=== PATIENT | female | born 2000 | race Two or more races ===

== ENCOUNTER → 2024-07-10 | Outpatient (CLI) | payer MEDICAID, SELFPAY ==
--- NOTE | 2024-07-10 13:00 | XR_ITS ---
Examination: Breast ultrasound, unilateral, right complete Date and time of exam: July 10, 2024 1309 hours INDICATIONS: MRI breast 05/07/2024 12 mm nodule outer right breast Technique: Real-time lane scale ultrasonographic imaging performed right breast including all 4 quadrants as well as nipple retroareolar and axillary region. Findings: 10:00 oval mass indistinct margins 10 x 6 x 11 mm IMPRESSION: BI-RADS Category 4: Suspicious for malignancy Suspicious nodule 10:00 position right breast, biopsy is needed to exclude breast carcinoma, this nodule is amenable to ultrasound-guided breast biopsy for diagnosis
--- NOTE | 2024-07-10 13:30 | XR_ITS ---
Examination: Diagnostic digital mammography, unilateral, right Computer aided detection 3-D breast Tomosynthesis, unilateral Date and time of exam: July 10, 2024 1327 hours INDICATIONS: Positive for BRCA genes, family history, mother breast cancer , Breast MRI 05/07/2024 12 mm nodule outer right breast Technique: Nonmagnified MLO, CC views of the right breast have been obtained, reconstructed from 3-D Tomosynthesis images. R2 computer aided detection program utilized for evaluation of suspicious masses and/or abnormal calcifications. 3-D Tomosynthesis images obtained. Findings: The breast is extremely dense, which limits the sensitivity of mammography 10:00 mass is confirmed on the follow-up views, corresponding to 10:00 nodule with indistinct margins on the right breast sonogram today, measuring 10 mm Impression: BI-RADS category 4: Suspicious for malignancy Suspicious nodule 10:00 position right breast is confirmed, corresponding to suspicious that o'clock nodule described on right breast sonogram today Biopsy of this nodule is needed to exclude breast carcinoma, this nodule is amenable to ultrasound-guided breast biopsy
== END | disposition home or self-care (01) ==
PROVIDERS: PCP Nurse Practitioner Family; Referring Provider Nurse Practitioner Family; Visit Provider Nurse Practitioner Family
DX: R92.341 Mammographic extreme density, right breast (principal); N63.11 Unspecified lump in the right breast, upper outer quadrant; Z80.3 Family history of malignant neoplasm of breast
CPT/HCPCS: 76641; 77061; 77065; G0279

== ENCOUNTER 2024-07-23 13:17 | Outpatient (RCR) | payer MEDICAID, SELFPAY | END 2024-08-19 23:59 | disposition home or self-care (01) | LOC: SCTC 13:17 | PROVIDERS: PCP Family Medicine; Referring Provider Family Medicine; Visit Provider Nurse Practitioner Family | DX: O26.891 Other specified pregnancy related conditions, first trimester (principal); N63.12 Unspecified lump in the right breast, upper inner quadrant; Z15.01 Genetic susceptibility to malignant neoplasm of breast; Z80.3 Family history of malignant neoplasm of breast; Z3A.12 12 weeks gestation of pregnancy | CPT/HCPCS: 99212; G0463 ==

== ENCOUNTER → 2024-09-16 | Outpatient (CLI) | payer MEDICAID, SELFPAY ==
[2024-09-15 10:08] LABS: Basophils % (Auto) 0 % (0-2.5); Eosinophils # (Auto) 0.1 Thou/mm3 (0.0-0.5); Eosinophils % (Auto) 2 % (0-10); Hematocrit 31.4 % (36.0-46.0); Hemoglobin 10.9 g/dL (12.0-16.0); Immature Granulocytes % (Auto) 1 % (0-0); Immature Granulocytes Auto 0.05 Thou/mm3 (0.00-0.00); Lymphocytes # (Auto) 1.3 Thou/mm3 (1.0-4.8); Lymphocytes % (Auto) 18 % (10-50); Mean Corpuscular HGB Conc 34.7 g/dl (31.0-37.0); Mean Corpuscular Hemoglobin 30.3 pg (25.0-35.0); Mean Corpuscular Volume 87 fL (80-100); Monocytes # (Auto) 0.4 Thou/mm3 (0.0-0.8); Monocytes % (Auto) 5 % (0-12); Neutrophils # (Auto) 5.5 Thou/mm3 (1.8-7.7); Neutrophils % (Auto) 74 % (37-80); Nucleated Red Blood Cell % 0 /100 WBC (0); Platelet Count 206 Thou/mm3 (140-440); RDW Standard Deviation 41.5 fL (36.4-46.3); White Blood Count 7.4 Thou/mm3 (3.6-11.0)
[2024-09-15 10:11] LABS: HCG,Qualitative Serum Positive
[2024-09-15 10:27] LABS: INR 0.9 (0.9-1.3); Partial Thromboplastin Time 24.2 Seconds (22.0-36.0)
--- NOTE | 2024-09-16 10:30 | XR_ITS ---
Examinations: Ultrasound-guided percutaneous breast biopsy, right breast 10:00 nodule Right breast sonography limited. Exam date and time: September 16, 2024 1040 hours INDICATIONS: Right breast sonogram July 10, 2024 BI-RADS 4 suspicious mass 10:00 position right breast. Informed consent provided. Technique: A timeout was completed verifying correct patient, procedure, site, positioning, and special equipment if applicable Informed consent provided. The patient was placed in a supine position for the breast biopsy. Sonographic images of the breast were performed for localization of the suspicious nodule The patient's breast was prepped and draped in sterile fashion. Maximum sterile barrier technique, hand hygiene, ultrasound sterile technique 1% lidocaine was used to anesthetize the skin and breast adjacent to the suspicious nodule. Utilizing ultrasonographic guidance, 8 core biopsies were obtained of the suspicious nodule utilizing an 18-gauge BioPince needle. The specimens appears satisfactory. US guided breast biopsy marker placement. Estimated blood loss 3 cc. The patient tolerated the procedure well and there were no complications. Impression: Successful ultrasound-guided percutaneous breast biopsy, right breast 10:00 nodule. Ultrasound guided breast biopsy marker placement.
== END | disposition home or self-care (01) ==
PROVIDERS: Radiology Diagnostic Radiology; PCP Physician Assistant Medical; Referring Provider Nurse Practitioner Family; Visit Provider Nurse Practitioner Family
DX: D24.1 Benign neoplasm of right breast (principal); Z80.3 Family history of malignant neoplasm of breast; Z01.812 Encounter for preprocedural laboratory examination
CPT/HCPCS: 19083; 36415; 84703; 85025; 85610; 85730; A4648

== ENCOUNTER 2024-10-02 13:54 | Outpatient (RCR) | payer MEDICAID, SELFPAY ==
--- NOTE | 2024-10-19 15:59 | CTCFLWUP_ITS ---
Patient: HORACIO LOU : 2000 Page 4 of 5 FOLLOW UP NOTE DATE OF SERVICE: 10/02/2024 NAME: HORACIO LOU ACCOUNT: [id number] : 2000 AGE: 23 INTERVAL HISTORY: Patient requesting referrel to surgeon for prophylactic mastectomy She is worried all the time and it affects her life style. ONCOLOGY HISTORY: No cancer diagnosis BRCA HISTORY OF PRESENT ILLNESS: Patient is pending right breast biopsy. Unfortunately, patient did not complete labs prior to today?s appointment. Patient has a history of anemia during , denies bleeding concerns. Patient is 12 weeks , following up with Dr. Raya, OBGYN. Only complaint today is feeling tired. Patient denies cough chest pain abdominal pain leg cramps weight loss. HISTORY: Ms. Horacio Lou is a 23 year old Gabonese speaking female. Patients was referred to [facility] due to positive BRCA 1 genetic test, patient mother was diagnosed with breast cancer when she was 23 years old. Patient has a child. 06/13/2024: Breast Cancer Genetic testing 10/18/2023: Pelvic ultrasound Conclusion: The measurements of the uterus and ovaries are unremarkable. No fluid in the cul-de-sac. Thickening of the endometrial stripe which measures 1.5 cm 10/18/2023: bilateral breast ultrasound Findings: Sonographic images right breast No cystic or solid mass Sonographic images left breast 1:00 oval mass 7 x 6 x 7 mm indistinct margins IMPRESSION: BI-RADS Category 4: Suspicious for malignancy Suspicious mass 1:00 position left breast Biopsy is needed to say breast carcinoma This mass is amenable to ultrasound-guided breast biopsy for diagnosis Also recommend diagnostic mammography follow-up 03/20/2024: CA125 is 16.5, CEA is 0.6 03/25/2024: Left breast biopsy 04/07/2024: Ultrasound pelvic transabdominal 04/07/2024: Transvaginal ultrasound of the pelvis 05/01/2024 : left breast diagnostic mammogram - showed probably benign findings, recommended 6-month follow-up left mammogram to document stability 1:00 biopsy nodule left breast 05/05/2024: chest x-ray showed no active disease 05/06/2024 : surveillance CT of abdomen and pelvis with contrast- showed no abdominal or pelvic mass, recommended MRI of breast due to history 05/07/2024: bilateral breast MRI- recommended for additional imaging, right breast diagnostic mammogram and right breast ultrasound for 12 mm nodule circumcise outer right breast OTHER MEDICAL HISTORY/CONDITIONS: BRCA positive Migraine headaches since age 11 Kidney stones during - 2020 Ureteral Stent placed while then removed FAMILY HISTORY: Mother breast cancer, at the age of 23 y/o, mother BRCA positive. SOCIAL HISTORY: Occupational?History:?Student Education?Level:?Attended College, did not graduate Marital?Status:?Life?Partner Tobacco?Use:?Denies ETOH?Use:?Denies Drug?Note:?Denies Social History Note:?Lives with partner and child HISTOLOGICAL ILLUSTRATOR HISTORY: Menarche?-?Age:?12 Date?LMP:?08/31/2023 :?1 Live?Births:?1 Age?1st?:?20 MEDICATIONS: 1. - 1 mg tab Daily Medications Last Reconciled by Mirna Stratton MA on 10/02/2024 ALLERGIES: No Known Drug Allergies REVIEW OF SYSTEMS: A complete 14-point review of systems was performed and is negative except as noted in interval history. PHYSICAL EXAMINATION: VITAL SIGNS: Temperature?98.2, B/P?121/82, Oxygen?Saturation?97% Weight?208?lbs PAIN: 0 - No pain ECOG Performance Status: 0 - Asymptomatic and fully active GENERAL APPEARANCE: Appears well, in no apparent distress, appropriately interactive. HEENT: Normocephalic, no temporal wasting, normal conjunctiva, no scleral icterus, normal hearing, lips without lesions, neck normal range of motion. CARDIOVASCULAR: Not assessed. PULMONARY: Normal respiratory effort, no respiratory distress or use of accessory muscles, speaking in full sentences, no tachypnea. EXTREMITIES: No pedal edema or cyanosis. SKIN: Normal skin appearance. NEUROLOGIC: Alert and oriented x4. PSHYCHIATRIC: Appropriate affect, mood normal, behavior normal, intact thought and speech. LABORATORY DATA: I have personally reviewed and interpreted each of the patient?s relevant lab tests, abnormal findings are below: Date 09/15/24 ??WHITE?BLOOD?COUNT?(Thou/mm3) 7.4 ??RED?BLOOD?COUNT?(Miln/mm3) 3.60?L ??HEMOGLOBIN?(gm/dl) 10.9?L ??HEMATOCRIT?(%) 31.4?L ??PLATELET?COUNT?(Thou/mm3) 206 ??NEUTROPHILS?%,?AUTO?(%) 74 ??LYMPH?%,?AUTO?(%) 18 ??NEUTROPHILS,?AUTO?(Thou/mm3) 5.5 ASSESSMENT/PLAN: BRCA1 MULTIPLE BIOPSIES AND imaging ? all benign Patiet is worried and want to do prophylactic mastectomy ORDERS: Mammogram ,referrel to dr goodwin for mastectomy RETURN TO CLINIC: prn BILLING AND COMPLIANCE: I reviewed external records from providers outside my specialty as summarized above. I spent a total of 50 minutes on this patient?s care on the day of their visit excluding time spent related to any billed procedures. This time includes time spent with the patient as well as time spent documenting in the medical record, reviewing patients records and tests, obtaining history, placing orders, communicating with other healthcare professionals, counseling the patient, family or caregiver, and/or care coordination for the diagnoses above. Electronically Signed by: Chepe Javier MD T: 3:56 PM CC: PCP: Sherry Krueger Referring: Sherry Krueger This document was completed utilizing speech recognition software. Grammatical errors, random word insertions, pronoun errors, and incomplete sentences are an occasional consequence of this system due to software limitations, ambient noise, and hardware issues. Any formal questions or concerns about the content, text or information contained within the body of this dictation should be directly addressed to the provider for clarification.
== END 2024-10-17 23:59 | disposition home or self-care (01) ==
LOC: SCTC 13:54
PROVIDERS: PCP Family Medicine; Referring Provider Nurse Practitioner Family; Visit Provider Internal Medicine Hematology & Oncology
DX: Z76.89 Persons encountering health services in other specified circumstances (principal); Z80.3 Family history of malignant neoplasm of breast; Z15.01 Genetic susceptibility to malignant neoplasm of breast
CPT/HCPCS: 99212; G0463

== ENCOUNTER → 2024-10-30 | Outpatient (CLI) | payer MEDICAID, SELFPAY ==
--- NOTE | 2024-10-30 08:00 | XR_ITS ---
Examination: Diagnostic digital mammography, unilateral, left Computer aided detection 3-D breast Tomosynthesis, unilateral Date and time of exam: 10/30/2024, 8:43 AM Comparisons: May 01, 2024 Indications: Positive BRCA Technique: Nonmagnified MLO, CC views of the left breast have been obtained, reconstructed from 3-D Tomosynthesis images. R2 computer aided detection program utilized for evaluation of suspicious masses and/or abnormal calcifications. 3-D Tomosynthesis images obtained. Technologist: Findings: The breasts are extremely dense, which lowers the sensitivity of mammography. No evidence of abnormal masses or suspicious calcifications. Stable 8 mm left upper outer quadrant mass with postbiopsy marker clip. Otherwise, no suspicious masses or calcifications. Impression: BI-RADS category 2: Benign findings Recommend yearly screening MRI exam
== END | disposition home or self-care (01) ==
PROVIDERS: Referring Provider Nurse Practitioner Family; Visit Provider Nurse Practitioner Family
DX: R92.322 Mammographic fibroglandular density, left breast (principal); Z80.3 Family history of malignant neoplasm of breast
CPT/HCPCS: 77061; 77065; G0279

== ENCOUNTER 2025-01-23 22:41 | Observation (INO) | payer MEDICAID, SELFPAY ==
[2025-01-23] VITALS (18 sets, daily range): BP systolic 125–135; BP diastolic 63–75; PULSE 83–110; RESP 18–97; TEMP 36.9; O2SAT 92–98; BMI 35.8
[2025-01-23 23:24] LABS: ROM Kit Lot # 578010271; ROM Swab Mixed By: SEDAD; Rupture of Fetal Membranes Negative (Negative); Swb Mxed in Solvent 1 min? Yes
== END 2025-01-24 00:07 | disposition home or self-care (01) ==
PROVIDERS: Admitting Provider Specialist; Visit Provider Specialist
DX: O47.1 False labor at or after 37 completed weeks of gestation (principal); Z3A.38 38 weeks gestation of pregnancy
CPT/HCPCS: 59025; 59899; 84112

== ENCOUNTER 2025-01-28 10:31 | Inpatient (IN) | payer MEDICAID, SELFPAY ==
[2025-01-28] VITALS (61 sets, daily range): BP systolic 120–152; BP diastolic 57–91; PULSE 74–110; RESP 18–97; TEMP 36.7–37.4; O2SAT 92–100; BMI 38.5; BMI 36.1
--- NOTE | 2025-01-28 10:41 | XR_ITS ---
Examination: Complete OB ultrasound greater than 14 weeks Date and time of exam: January 28, 2025 1115 hours INDICATIONS: -induced hypertension today Findings: Viable intrauterine single fetus with single amniotic sac presentation cephalic spine maternal right Cardiac motion 141 BPM Placenta anterior grade 3 Umbilical cord insertion 3 vessel seen Amniotic fluid index 11.2 cm Cervix 3.9 cm Ovaries obscured by bowel gas. Composite estimated gestational age based on BPD, head circumference, abdominal circumference, femur length is 39 weeks 1 day Estimated weight 3701 g. Survey of intracranial anatomy, spinal anatomy, abdominal anatomy, four-chamber heart performed with no abnormalities identified. Impression: Viable intrauterine gestation cephalic presentation.
[2025-01-28 11:07] LABS: Collection Type, Urine Clean Catch
[2025-01-28 11:15] LABS: Basophils % (Auto) 0 % (0-2.5); Eosinophils % (Auto) 1 % (0-10); Hematocrit 28.7 % (36.0-46.0); Hemoglobin 9.8 g/dL (12.0-16.0); Immature Granulocytes % (Auto) 1 % (0-0); Immature Granulocytes Auto 0.03 Thou/mm3 (0.00-0.00); Lymphocytes # (Auto) 1.1 Thou/mm3 (1.0-4.8); Lymphocytes % (Auto) 19 % (10-50); Mean Corpuscular HGB Conc 34.1 g/dl (31.0-37.0); Mean Corpuscular Hemoglobin 26.6 pg (25.0-35.0); Mean Corpuscular Volume 78 fL (80-100); Monocytes # (Auto) 0.3 Thou/mm3 (0.0-0.8); Monocytes % (Auto) 4 % (0-12); Neutrophils # (Auto) 4.6 Thou/mm3 (1.8-7.7); Neutrophils % (Auto) 76 % (37-80); Nucleated Red Blood Cell % 0 /100 WBC (0); Platelet Count 202 Thou/mm3 (140-440); RDW Standard Deviation 45.8 fL (36.4-46.3); Red Blood Count 3.68 Miln/mm3 (4.00-5.20); White Blood Count 6.1 Thou/mm3 (3.6-11.0)
[2025-01-28 11:37] LABS: Alanine Aminotransferase 12 U/L (10-49); Albumin, Serum 3.6 gm/dL (3.5-5.0); Albumin/Globulin Ratio 1.8 (1.2-2.2); Alkaline Phosphatase 122 U/L (46-116); Anion Gap 12 (7-16); Aspartate Amino Transferase 15 U/L (0-34); BUN/Creatinine Ratio 13 Ratio (12-20); Bilirubin,Total 0.3 mg/dL (0.3-1.2); Blood Urea Nitrogen 8 mg/dL (9-23); Calcium 8.5 mg/dL (8.3-10.6); Calcium (Corrected) 8.8 mg/dL (8.5-10.1); Carbon Dioxide 21.5 mMol/L (20.0-31.0); Chloride 108 mMol/L (98-107); Creatinine (Component) 0.6 mg/dL (0.6-1.3); Estimated Creatinine Clearance 166.3 mL/min (>60); Glucose 115 mg/dL (74-106); Osmolality,Calculated 280 (275-295); Potassium 3.7 mMol/L (3.4-5.1); Sodium 141 mMol/L (136-145); Total Protein 5.6 gm/dL (5.7-8.2); Uric Acid 5.5 mg/dL (3.1-7.8); eGFR > 60 See Note
[2025-01-28 11:41] LABS: Bacteria,Urine Rare; Bilirubin,Urine Negative (Negative); Blood,Urine 3+ (Negative); Color,Urine Yellow (Lt Yel-Yel); Glucose, Urine Negative (Negative); Ketones,Urine Negative (Negative); Leukocyte Esterase,Urine Negative (Negative); Nitrite,Urine Negative (Negative); PH,Urine 6.5 (5.0-7.0); Protein,Urine 2+ (Neg - Trace); RBC,Urine 497 /hpf (0-3); Specific Gravity,Urine 1.022 (1.001-1.035); Squamous Epithelial Cell,Urine 2 /hpf (0-5); Urobilinogen,Urine Negative mg/dL (0.0-1.0); WBC,Urine 13 /hpf (0-5)
[2025-01-28 11:44] LABS: Clarity,Urine Hazy (Clear/Hazy)
[2025-01-28 11:51] LABS: Fibrinogen 371 mg/dL (175-375); INR 0.9 (0.9-1.3); Partial Thromboplastin Time 23.8 Seconds (22.0-36.0); Prothrombin Time 9.8 Seconds (9.0-12.2)
[2025-01-28 11:58] LABS: Creatinine,Random Urine 107 mg/dL (30-125)
[2025-01-28 12:05] LABS: Protein Total, Random Urine 309 mg/dL (1-14)
[2025-01-28] MEDS: MISOPROSTOL 50 mCg TABLET PO ×2 (14:28→21:16)
--- NOTE | 2025-01-28 17:15 | PD.LDHP ---
Documentation for date of: 01/28/25 OB Labor/Induct. HPI History of Present Illness Chief complaint: Elevated blood pressures in the office, sent over for evaluation : 3 Para: 1 Term pregnancies: 1 pregnancies: 0 Living children: 1 History of Abortions: Spontaneous and Elective: 1 History of Vaginal deliveries: 1 History of sections: No History of : No Date of last menstrual period: 04/27/24 JULES: 02/01/25 Gestational Age (weeks): 39 Gestational Age (days): 3 Gestational age based on last menstrual period: 39 Indication for induction: medical complication (Elevated protein creatinine ratio) History of present illness: Patient is a 24-year-old -0-1-1 at 39-3/[address] Raya's office for routine OB appointment and had elevated blood pressures. He sent her over to triage where her blood pressures normalized her labs were normal except her protein creatinine ratio corresponded to 3.9 g in 24-hour urine. She was admitted for an induction of labor. Her cervical exam was 2 to 3 cm dilated on presentation. Group B strep negative. She was given 50 mcg of oral Cytotec. An ultrasound on admission revealed a vertex presentation 8 pounds 4 ounces. Her first baby was 8 pounds 11 ounces. She did not push long she states around 15 minutes and did not have an epidural during that labor. She did have a long induction of labor at that time because they were inducing her 39 weeks for kidney pain with stents. History of Present Dating criteria: LMP confirmed by 1st trimester US Adequate Care: Yes Ultrasounds: normal mid trimester US Obstetrical complications: none Medical complications: other (Patient is BRCA1 positive and undergoing evaluation for prophylactic mastectomy. History of kidney stones) Labs Maternal Blood Type: B Pos Labs: Negative: RPR, Hepatitis B, Rubella Titre, HIV, Chlamydia, Gonorrhea and Group Beta Strep and Unknown: Herpes Type 1 and Herpes Type 2 Past Medical History Surgical History SURGICAL: Negative Section Meds Home Medications and Allergies Home Medications ?Medication ?Instructions ?Recorded ?Confirmed ?Type ferrous sulfate 325 mg (65 mg 325 mg PO QDAY 01/23/25 01/28/25 History iron) tablet vits no.130-ferrous fum 1 tab PO QDAY 01/23/25 01/28/25 History 27 mg iron-folic acid 800 mcg tablet ( Vitamin) Allergies Allergy/AdvReac Type Severity Reaction Status Date / Time No Known Allergies Allergy Verified 01/28/25 13:14 OB Exam Physical Exam Vital signs: Temp Pulse Resp BP Pulse Ox 98.1 F 97 18 142/82 H 99 01/28/25 15:00 01/28/25 16:49 01/28/25 15:00 01/28/25 16:49 01/28/25 15:00 Detailed Labor and Delivery Exam Dilation (cm): 2-3 Effacement (%): 60 Cervix position: posterior station: -3 Consistency: medium Presentation: Vertex Membranes: intact monitor accelerations: 15x15 monitor decelerations: None oil heaterman variability: Moderate (-) Contraction frequency (min): Every 4 minutes Tachysystole: No Contraction intensity: Moderate OB Results Labs 01/28/25 10:50 01/28/25 10:50 Labs: Short CBC 01/28/25 Range/Units 10:50 WBC 6.1 (3.6-11.0) Thou/mm3 Hgb 9.8 L (12.0-16.0) g/dL Hct 28.7 L (36.0-46.0) % Plt Count 202 (140-440) Thou/mm3 BMP 01/28/25 10:50 Sodium 141 Potassium 3.7 Chloride 108 H Carbon Dioxide 21.5 BUN 8 L Creatinine 0.6 Glucose 115 H Calcium 8.5 Liver Function 01/28/25 Range/Units 10:50 Total Bilirubin 0.3 (0.3-1.2) mg/dL AST 15 (0-34) U/L ALT 12 (10-49) U/L Alkaline Phosphatase 122 H (46-116) U/L Albumin 3.6 (3.5-5.0) gm/dL Urine 01/28/25 Range/Units 10:44 Urine Color Yellow (Lt Yel-Yel) Urine Clarity Hazy (Clear/Hazy) Urine pH 6.5 (5.0-7.0) Ur Specific Carmine 1.022 (1.001-1.035) Urine Protein 2+ A (Neg - Trace) Urine Glucose (UA) Negative (Negative) OB Assessment & Plan Assessment and Plan (1) Supervision of high risk in third trimester: Status: Acute Assessment and plan: Admit and induced patient for elevated protein. History of hemorrhage. (2) Preeclampsia: Status: Acute Assessment and plan: Blood pressures not severe range. Patient has 3 g of protein loss in a 24-hour urine on a protein creatinine ratio. Induce for severe proteinuria. (2) Preeclampsia Qualifiers: Trimester: third trimester Qualified Code(s): O14.93 - Unspecified pre-eclampsia, third trimester
[2025-01-28 18:38] LABS: Syphilis Nonreactive (Nonreactive)
[2025-01-28] MEDS: fentaNYL CIT INJ 50 mCg/ML AMP 2ML 100 MCG IVP (23:41)
[2025-01-29] VITALS (67 sets, daily range): BP systolic 109–184; BP diastolic 59–89; PULSE 73–166; RESP 16–18; TEMP 36.6–37.1; O2SAT 85–100
[2025-01-29] MEDS: fentaNYL CIT INJ 50 mCg/ML AMP 2ML 100 MCG IVP (00:51)
[2025-01-29] MEDS: TRANEXAMIC ACID 1,000 MG IVPB 1,000 MG/100 ML BAG 200 MG IV (02:12)
[2025-01-29] MEDS: METHYLERGONOVINE INJ 0.2 MG/ML VIAL IM (02:14)
[2025-01-29] MEDS: MISOPROSTOL 200 mCg TABLET 800 MCG PR (02:20)
[2025-01-29] MEDS: OXYTOCIN in NS 20 units 20 UNIT/1,000 ML BAG 125 UNIT IV ×2 (02:41→04:11)
[2025-01-29] MEDS: MINERAL OIL 30 ML UDC TOP (02:48)
[2025-01-29] MEDS: IBUPROFEN TAB 400 MG TABLET 800 MG PO ×2 (02:48→12:06)
[2025-01-29 03:18] LABS: Basophils % (Auto) 0 % (0-2.5); Eosinophils % (Auto) 0 % (0-10); Hematocrit 29.9 % (36.0-46.0); Hemoglobin 9.7 g/dL (12.0-16.0); Immature Granulocytes % (Auto) 1 % (0-0); Immature Granulocytes Auto 0.05 Thou/mm3 (0.00-0.00); Lymphocytes # (Auto) 1.1 Thou/mm3 (1.0-4.8); Lymphocytes % (Auto) 12 % (10-50); Mean Corpuscular HGB Conc 32.4 g/dl (31.0-37.0); Mean Corpuscular Hemoglobin 26.5 pg (25.0-35.0); Mean Corpuscular Volume 82 fL (80-100); Monocytes # (Auto) 0.4 Thou/mm3 (0.0-0.8); Monocytes % (Auto) 4 % (0-12); Neutrophils # (Auto) 8.2 Thou/mm3 (1.8-7.7); Neutrophils % (Auto) 84 % (37-80); Nucleated Red Blood Cell % 0 /100 WBC (0); Platelet Count 197 Thou/mm3 (140-440); RDW Standard Deviation 48.5 fL (36.4-46.3); Red Blood Count 3.66 Miln/mm3 (4.00-5.20); White Blood Count 9.8 Thou/mm3 (3.6-11.0)
[2025-01-29] MEDS: BENZO/LANO/ALOE (Dermoplast) 60 GM CAN 1 SPRAY TOP (04:11)
--- NOTE | 2025-01-29 04:34 | OBDSUM_ITS ---
Data ([facility]) Data Hx Section: No Maternal Blood Type: B Pos Rubella Titre: Negative RPR: Non-reactive Labs: Negative: RPR, Hepatitis B, HIV, Chlamydia, Gonorrhea and Group Beta Strep : 3 Term: 1 : 0 Livin Abortions: Spontaneous & Theraputic: 1 Delivery Data ([facility]) Labor Data Initiation of labor: Induction Induction/Augmentation Agent: Cytotec-PO ROM date: 01/29/25 ROM time: 00:14 Amniotic membrane rupture type: Spontaneous Amniotic fluid description: Clear Delivery Data EDC: 02/01/25 EDC calculated by:: LMP/early US confirmation Date of arrival to unit: 01/28/25 Onset of labor date: 01/28/25 Onset of labor time: 20:00 Complete dilation date: 01/29/25 Complete dilation time: 01:49 [place] delivery date: 01/29/25 [place] delivery time: 02:02 Gestational age (weeks): 39 Gestational age (days): 4 Placenta delivery date: 01/29/25 Placenta delivery time: 02:11 Stage 1 total time: Labor - Stage 1 Duration 5 hours and 49 minutes Delivered by: Fozia Eddy ([facility]) Delivery nurse: majo Padilla nurse: Reba Nunez RN Leveling Machine Operator at delivery: No Support person(s) at delivery: FOB, mother at bedside Delivery Method Delivery method: Normal Vaginal Delivery Presentation: Vertex position: OA Anesthesia Type Anesthesia Type: Epidural Delivery Room Medications Delivery room medications: Methergine 0.2 mg IM, Pitocin 20 u IV, Cytotec 800 KS and other (TXA) Placenta Placenta delivery description: Manual Removal Cord blood sent to lab: Yes cord blood collection: Cord Blood Type Episiotomy Episiotomy description: None Lacerations #2: Periurethral: Bilateral first-degree periurethral lacerations Perineal repair Sutures used for repair: 4.0 Chromic EBL Estimated blood loss (ml): 800 Umbilical Cord cord description: 3 Vessels Additional Procedures Patient was 5 cm doing well in labor and asked for an epidural and she rapidly progressed to complete long not long after epidural was placed and pushed through 1 contraction delivering a liveborn female. Findings liveborn female in the MICHELLE presentation with no nuchal cord and no meconium. Apgars were 9 and 9. Weight was 8 pounds 7 ounces. The placenta was manually removed and handed off the operating field. The patient then had a brisk hemorrhage of a total of about 800 cc. Patient was given IM Methergine, bolued Pitocin, TXA, and 800 mcg of Cytotec rectally. Vigorous uterine massage was performed in order to get the uterus to stay firm. Some packing was placed to obtain excellent hemostasis. A stat CBC was called for 2 units of blood were called for and placed on hold. A second IV was started. The patient's predelivery hemoglobin was only 9.8. The patient was informed that she may need a blood transfusion. She sustained bilateral first-degree periurethral lacerations repaired in a standard fashion using 4-0 chromic. Complications Complications: hemorrhage. Patient given TXA, 800 mcg of rectal Cytotec, IM Methergine. Manual exploration and manual compression of uterus performed. One fourth of a Curlex packed in the vagina. Data ([facility]) Data order: 1 Identification band number: [id number] weight (gms): 3840 g Weight (pounds): 8 lbs and 7.5 ozs length: 53 cm 1 minute: 9 5 minutes: 9
--- NOTE | 2025-01-29 05:35 | PC.NURSE ---
0445: RN AT BEDSIDE TO ASSIST PATIENT UP TO BATHROOM. PATIENT STATES LEGS STILL FEEL A LITTLE NUMB. MOBILITY OF LOWER EXTREMITIES TESTED BY RN. PATIENT UNABLE TO BEAR WEIGHT SAFELY. PATIENT PLACED ON BEDPAN. PATIENT UNABLE TO VOID. PERICARE DONE, CLEAN PERIPAD PLACED ALONG WITH ICEPACK. FUNDUS FIRM SCANT BLEEDING NOTED. VAGINAL PACKING NOTED IN PLACE AND INTACT. PATIENT ASSISTED TO WHEELCHAIR. PATIENT TRANSFERED TO ROOM 464. 0
[2025-01-29] MEDS: ceFAZolin/D5W 2 GM IV 2 GM/100 ML BAG IV ×3 (06:24→21:55)
--- NOTE | 2025-01-29 06:32 | PC.NURSE ---
0630: DR GUERRERO AT BEDSIDE , VAGINAL PACKING REMOVED BY , FUNDAL MASSAGE DONE.
--- NOTE | 2025-01-29 08:35 | PC.LAC ---
Follow up with mom regarding latch, mom states she is feeding for 15-20 minutes, baby doing well and swallows observed. She states she is still having no pain and/or tissue breakdown. Gave hand out on resources for tongue and lip tie. Talked with Dr. Randle and she is willing to do tie release if parents would like this done.
--- NOTE | 2025-01-29 10:35 | PC.NURSE ---
Rajendra from [facility] had a referral for this pt, however there's no indication in the chart or with nursing interactions with pt to indicate the need for SS clearance. I went and spoke with the L&D nurse (Frances) that did the intake for this pt and she said that the doctor put the referral on the wrong pt. SS Rajendra informed that this was a referral error
[2025-01-29 11:02] LABS: Basophils % (Auto) 0 % (0-2.5); Eosinophils % (Auto) 0 % (0-10); Hematocrit 26.4 % (36.0-46.0); Hemoglobin 9.1 g/dL (12.0-16.0); Immature Granulocytes % (Auto) 0 % (0-0); Immature Granulocytes Auto 0.03 Thou/mm3 (0.00-0.00); Lymphocytes # (Auto) 1.2 Thou/mm3 (1.0-4.8); Lymphocytes % (Auto) 11 % (10-50); Mean Corpuscular HGB Conc 34.5 g/dl (31.0-37.0); Mean Corpuscular Hemoglobin 26.5 pg (25.0-35.0); Mean Corpuscular Volume 77 fL (80-100); Monocytes # (Auto) 0.8 Thou/mm3 (0.0-0.8); Monocytes % (Auto) 7 % (0-12); Neutrophils # (Auto) 9.5 Thou/mm3 (1.8-7.7); Neutrophils % (Auto) 82 % (37-80); Nucleated Red Blood Cell % 0 /100 WBC (0); Platelet Count 187 Thou/mm3 (140-440); RDW Standard Deviation 45.2 fL (36.4-46.3); Red Blood Count 3.43 Miln/mm3 (4.00-5.20); White Blood Count 11.6 Thou/mm3 (3.6-11.0)
--- NOTE | 2025-01-29 13:28 | PC.SS ---
KNIFE MACHINE OPERATOR notified by bedside nurse that referral generated on behalf of the patient was an error. No aids social worker follow up required.
[2025-01-29] MEDS: HYDROcodone/APAP 5/325 TABLET 1 TAB PO (14:33)
--- NOTE | 2025-01-29 22:28 | PC.NURSE ---
2200 Pt requested breast pump. RN set up pump, supplies, and educated on use and pump time intervals. Pt stated understanding.
[2025-01-30 00:20] VITALS: BP 125/82; PULSE 80; RESP 17; TEMP 36.9; O2SAT 97
[2025-01-30] MEDS: IBUPROFEN TAB 400 MG TABLET 800 MG PO (00:34)
[2025-01-30 03:42] VITALS: BP 124/75; PULSE 72; RESP 16; TEMP 36.7; O2SAT 98
[2025-01-30] MEDS: ceFAZolin/D5W 2 GM IV 2 GM/100 ML BAG IV (05:36)
--- NOTE | 2025-01-30 06:37 | ESDS_ITS ---
DS: Providers Provider Date of admission: 01/28/25 13:40 Primary care physician: Physician No Primary/Family Admitting Provider: Fozia Eddy MD ([facility]) Attending Provider on Admission: Jakob Raya MD Consults: 01/29/25 04:43 Referral Routine Comment: Attending Provider on DC: Jakob Raya MD Discharging Provider: Jakob Raya MD DS: Diagnosis Problem List Completed Was Problem List Reviewed/Reconciled?: Yes Summary/Hosp Course Brief History: Patient is a 24-year-old -0-1-1 at 39-3/[address] Raya's office for routine OB appointment and had elevated blood pressures. He sent her over to triage where her blood pressures normalized her labs were normal except her protein creatinine ratio corresponded to 3.9 g in 24-hour urine. She was admitted for an induction of labor. Her cervical exam was 2 to 3 cm dilated on presentation. Group B strep negative. She was given 50 mcg of oral Cytotec. An ultrasound on admission revealed a vertex presentation 8 pounds 4 ounces. Her first baby was 8 pounds 11 ounces. She did not push long she states around 15 minutes and did not have an epidural during that labor. She did have a long induction of labor at that time because they were inducing her 39 weeks for kidney pain with stents. Peripartum Data Delivery Method: Normal Vaginal Delivery Episiotomy Description: None Time Spent with Patient Time attestation: Total time spent providing and/or coordinating discharge services: Exam Vital Signs Temp Pulse Resp BP Pulse Ox O2 Del Method 98.0 F 72 16 124/75 98 Room Air 01/30/25 03:42 01/30/25 03:42 01/30/25 03:42 01/30/25 03:42 01/30/25 03:42 01/30/25 03:42 Discharge Plan Plan Patient Disposition: HOME (Self Care) Patient condition on transfer: Stable Prescriptions/Referrals Prescriptions/Med Rec: New ibuprofen 600 mg tablet 600 mg PO Q6H PRN (Reason: pain) Qty: 30 0RF Continued ferrous sulfate 325 mg (65 mg iron) tablet 325 mg PO QDAY Patient Comments: TAKE 1 TABLET BY MOUTH EVERY OTHER DAY Vitamin 27 mg iron- 800 mcg tablet 1 tab PO QDAY Patient Comments: TAKE 1 TABLET BY MOUTH EVERY DAY Referrals: No Primary/Family,Physician [Primary Care Provider] - Patient/Caregiver Discharge Instructions Print Language: Azerbaijani Stand Alone Forms: Josefina Garcia Info., Patient Portal Info Letter Discharge Order Discharge Orders: Discharge (Routine); Ordered 01/30/25 Ordered By: Jakob Raya Planned Discharge Date 01/30/25
--- NOTE | 2025-01-30 06:51 | ESPR_ITS ---
RE: HORACIO MASTERS : 2000 DATE OF SERVICE: 01/30/2025 S: day #1, the patient denies any problems or complaints. She is voiding. She is ambulating. She has tolerated regular diet. She is passing flatus. She denies any excessive vaginal bleeding. She denies any dizziness or lightheadedness. She denies any chest pain, palpitations, shortness of breath, or lower extremity pain. She denies any headache, change in vision, or right upper quadrant pain. O: Vital Signs: Blood pressure 124/75, heart rate 72, respirations 16, temperature 98.0, and pulse oximetry is 98% on room air. Lungs: Clear to auscultation bilaterally. Heart: Regular rate and rhythm. Abdomen: Fundus is firm, nontender. Extremities: Nontender. LABORATORY DATA: Hemoglobin is 9.1. A: day #1, status post spontaneous vaginal delivery complicated by hemorrhage treated with uterotonics, hemodynamically stable with no ongoing significant vaginal bleeding. P: Discharge home. Discharge instructions given. Follow up in the office in 6 weeks. DT: 06:35:29 TT: 06:49:00 Ref: [id number] - TID: [id number]
[2025-01-30 08:00] VITALS: BP 129/85; PULSE 72; RESP 16; TEMP 36.7; O2SAT 98
[2025-01-30 09:45] LABS: Basophils % (Auto) 0 % (0-2.5); Eosinophils # (Auto) 0.1 Thou/mm3 (0.0-0.5); Eosinophils % (Auto) 2 % (0-10); Immature Granulocytes % (Auto) 0 % (0-0); Immature Granulocytes Auto 0.03 Thou/mm3 (0.00-0.00); Lymphocytes # (Auto) 1.7 Thou/mm3 (1.0-4.8); Lymphocytes % (Auto) 23 % (10-50); Mean Corpuscular HGB Conc 33.2 g/dl (31.0-37.0); Mean Corpuscular Volume 78 fL (80-100); Monocytes # (Auto) 0.4 Thou/mm3 (0.0-0.8); Monocytes % (Auto) 6 % (0-12); Neutrophils % (Auto) 69 % (37-80); Nucleated Red Blood Cell % 0 /100 WBC (0); Platelet Count 175 Thou/mm3 (140-440); RDW Standard Deviation 46.4 fL (36.4-46.3); Red Blood Count 3.19 Miln/mm3 (4.00-5.20); White Blood Count 7.3 Thou/mm3 (3.6-11.0)
[2025-01-30 09:48] LABS: Hemoglobin 8.3 g/dL (12.0-16.0)
== END 2025-01-30 13:52 | disposition home or self-care (01) | DRG 560 ==
LOC: S4SX 13:43 → S4NX 01-29 05:40
PROVIDERS: Admitting Provider Obstetrics & Gynecology; Visit Provider Specialist
DX: O14.94 Unspecified pre-eclampsia, complicating childbirth (principal); Z37.0 Single live birth; Z3A.39 39 weeks gestation of pregnancy; O72.1 Other immediate postpartum hemorrhage; O71.82 Other specified trauma to perineum and vulva; Z87.442 Personal history of urinary calculi
CPT/HCPCS: 36415; 59025; 76805; 80053; 81001; 82570; 84156; 84450; 84550; 85025; 85384; 85610; 85730; 86780; 86850; 86900; 86901; 86923; J0689; J2210; J2590; J2795; J3010; J3490; S0191; A9270

== ENCOUNTER 2025-02-09 09:10 | Outpatient (AMBR) | payer MEDICAID, SELFPAY | END 2025-02-16 23:59 | disposition home or self-care (01) | LOC: HODLAC 09:10 | DX: Z39.1 Encounter for care and examination of lactating mother (principal) ==

== ENCOUNTER 2025-03-31 11:11 | Outpatient (AMBR) | payer MEDICAID, SELFPAY ==
--- NOTE | 2025-03-31 11:42 | LAC.VISIT ---
Assessment LAC Breast Assessment Breast Assessment Left: Breast Assessment Comment: mom has large pendulous breast, medium sized nipples Alternative Milk Expression Alternative Milk Expression Alternative Method Used: Yes Method Used: Pumping Alternative Method Comment: mom currently only pumping 1-2 times in 24 hours Alternative Method Produced Milk / Colostrum: Yes Production Amount: 3 Production ounces or mls: ounces Pump Used: Electric Pumping Frequency Per Day: 2 Pumping Frequency Comment: mom is able to put baby to breast and feel like baby doing a good enough job. LAC Assessment Breast Feeding Assessment Date of : 01/29/25 Current Age of baby: 60 (days) Weight: 3827.186 g Current weight of baby: 5584.856 g # of Stool voids in last 24 hrs: 0 # of Urine voids in last 24 hrs: 6 Breast Feeding Ability: Well Harleigh Complications Comment: baby had diagnosed tongue tie and lip tie. tongue tie was repaird on March 26, 2025 by [facility]. mom states she feels baby is doing well since the release Activity Level: Awake / Alert and Crying Harleigh Muscle Tone: With In Normal Limits Suck Quality: Areolar Compression, Rhythmic and Tongue Cups Well Effective Suck: Yes Swallow: Audible, Observed and Consistent Harleigh Jaw: With In Norml Limits Harleigh Lip Seal: Good Feeding Posistion: Cross Cradle Additional Latch or Posistion Assistance Needed: None Breast Feeding Comment: baby did a 22 minute feed in the office, she fell asleep and was sated when detached Pre Weight (before feeding): 5584.856 g Post Weight (post feeding): 6123.497 g % gained or lost: 10% Gain LAC Intervention Interventions Tools: Pump Discharge Follow Up Appointment Date and Time: as needed Other Referral Made: No Feeding Preference at Discharge: Exclusive OP DC Assessment Discharge Follow Up Appointment Date and Time: as needed Other Referral Made: No Visit Complete?: Yes
== END 2025-04-19 23:59 | disposition home or self-care (01) ==
LOC: HODLAC 11:11
DX: Z39.1 Encounter for care and examination of lactating mother (principal)

== ENCOUNTER 2025-04-01 14:33 | Outpatient (RCR) | payer MEDICAID, SELFPAY ==
--- NOTE | 2025-04-01 17:01 | CTCFLWUP_ITS ---
Patient: HORACIO LOU : 2000 Page 4 of 6 FOLLOW UP NOTE DATE OF SERVICE: 04/01/2025 NAME: HORACIO LOU ACCOUNT: [id number] : 2000 AGE: 24 INTERVAL HISTORY: Patient just had a baby which is 2 months old and breast-feeding. Patient is going to follow-up with Dr. Morris for prophylactic mastectomy in April 2025 ONCOLOGY HISTORY: No cancer diagnosis BRCA TREATMENT HISTORY: Care?Plan Start?Date Cycle Day Intent HISTORY OF PRESENT ILLNESS: Patient is pending right breast biopsy. Unfortunately, patient did not complete labs prior to today?s appointment. Patient has a history of anemia during , denies bleeding concerns. Patient is 12 weeks , following up with Dr. Raya [facility]. Only complaint today is feeling tired. Patient denies cough chest pain abdominal pain leg cramps weight loss. HISTORY: Ms. Horacio Lou is a 24 year old Romansh speaking female. Patients was referred to [facility] due to positive BRCA 1 genetic test, patient mother was diagnosed with breast cancer when she was 23 years old. Patient has a child. 06/13/2024: Breast Cancer Genetic testing 10/18/2023: Pelvic ultrasound Conclusion: The measurements of the uterus and ovaries are unremarkable. No fluid in the cul-de-sac. Thickening of the endometrial stripe which measures 1.5 cm 10/18/2023: bilateral breast ultrasound Findings: Sonographic images right breast No cystic or solid mass Sonographic images left breast 1:00 oval mass 7 x 6 x 7 mm indistinct margins IMPRESSION: BI-RADS Category 4: Suspicious for malignancy Suspicious mass 1:00 position left breast Biopsy is needed to say breast carcinoma This mass is amenable to ultrasound-guided breast biopsy for diagnosis Also recommend diagnostic mammography follow-up 03/20/2024: CA125 is 16.5, CEA is 0.6 03/25/2024: Left breast biopsy 04/07/2024: Ultrasound pelvic transabdominal 04/07/2024: Transvaginal ultrasound of the pelvis 05/01/2024 : left breast diagnostic mammogram - showed probably benign findings, recommended 6-month follow-up left mammogram to document stability 1:00 biopsy nodule left breast 05/05/2024: chest x-ray showed no active disease 05/06/2024 : surveillance CT of abdomen and pelvis with contrast- showed no abdominal or pelvic mass, recommended MRI of breast due to history 05/07/2024: bilateral breast MRI- recommended for additional imaging, right breast diagnostic mammogram and right breast ultrasound for 12 mm nodule circumcise outer right breast OTHER MEDICAL HISTORY/CONDITIONS: BRCA positive Migraine headaches since age 11 Kidney stones during - 2020 Ureteral Stent placed while then removed FAMILY HISTORY: Mother breast cancer, at the age of 23 y/o, mother BRCA positive. SOCIAL HISTORY: Occupational?History:?Student Education?Level:?Attended College, did not graduate Marital?Status:?Life?Partner Tobacco?Use:?Denies ETOH?Use:?Denies Drug?Note:?Denies Social History Note:?Lives with partner and child MANAGER OF PRODUCT HISTORY: Menarche?-?Age:?12 Date?LMP:?08/31/2023 :?1 Live?Births:?1 Age?1st?:?20 MEDICATIONS: 1. None Medications Last Reconciled by Frances Schwartz MD on 04/01/2025 ALLERGIES: No Known Drug Allergies REVIEW OF SYSTEMS: A complete 14-point review of systems was performed and is negative except as noted in interval history. PHYSICAL EXAMINATION: VITAL SIGNS: Temperature?98.2, B/P?127/82, Oxygen?Saturation?94% Weight?185?lbs PAIN: 0 - No pain ECOG Performance Status: 0 - Asymptomatic and fully active GENERAL APPEARANCE: Appears well, in no apparent distress, appropriately interactive. HEENT: Normocephalic, no temporal wasting, normal conjunctiva, no scleral icterus, normal hearing, lips without lesions, neck normal range of motion. CARDIOVASCULAR: Not assessed. PULMONARY: Normal respiratory effort, no respiratory distress or use of accessory muscles, speaking in full sentences, no tachypnea. EXTREMITIES: No pedal edema or cyanosis. SKIN: Normal skin appearance. NEUROLOGIC: Alert and oriented x4. PSHYCHIATRIC: Appropriate affect, mood normal, behavior normal, intact thought and speech. LABORATORY DATA: I have personally reviewed and interpreted each of the patient?s relevant lab tests, abnormal findings are below: Date 01/28/25 01/29/25 01/30/25 ??WHITE?BLOOD?COUNT?(Thou/mm3) 6.1 9.8 11.6?H 7.3 ??RED?BLOOD?COUNT?(Miln/mm3) 3.68?L 3.66?L 3.43?L 3.19?L ??HEMOGLOBIN?(gm/dl) 9.8?L 9.7?L 9.1?L 8.3?L ??HEMATOCRIT?(%) 28.7?L 29.9?L 26.4?L 25.0?L ??PLATELET?COUNT?(Thou/mm3) 202 197 187 175 ??NEUTROPHILS?%,?AUTO?(%) 76 84?H 82?H 69 ??LYMPH?%,?AUTO?(%) 19 12 11 23 ??NEUTROPHILS,?AUTO?(Thou/mm3) 4.6 8.2?H 9.5?H 5.0 ASSESSMENT/PLAN: BRCA1 MULTIPLE BIOPSIES AND imaging ? all benign Patiet is worried and want to do prophylactic mastectomy Patient will follow-up with Dr. Morris as referral was placed last time Will also do referral now for egg preservation MRI breast to evaluate for any malignant lesion RTC in 6 months ORDERS: Order # Description [id number] MRI + Breast + With W/O Contrast [id number] CA 125 + Comprehensive Metabolic Panel - 12 + CBC with Auto Diff [id number] Comprehensive Metabolic Panel - 12 + CBC with Auto Diff [id number] MD Follow Up 6 Month [id number] MD Follow Up 6 Month RETURN TO CLINIC: I reviewed the diagnosis, prognosis, and recommended treatment/procedure options with the patient (and/or their legal canvas products sales representative), including the potential benefits, risks, side effects and alternative therapies. We also discussed the option of no treatment and the possibility of clinical trial participation, if applicable. All questions were addressed, and they demonstrated understanding. They provided informed consent to proceed with the proposed plan of care. BILLING AND COMPLIANCE: I reviewed external records from providers outside my specialty as summarized above. I spent a total of 50 minutes on this patient?s care on the day of their visit excluding time spent related to any billed procedures. This time includes time spent with the patient as well as time spent documenting in the medical record, reviewing patients records and tests, obtaining history, placing orders, communicating with other healthcare professionals, counseling the patient, family or caregiver, and/or care coordination for the diagnoses above. Electronically Signed by: Chepe Javier MD T: 4:59 PM CC: PCP: Julio Cesar Motta Referring: Julio Cesar Motta This document was completed utilizing speech recognition software. Grammatical errors, random word insertions, pronoun errors, and incomplete sentences are an occasional consequence of this system due to software limitations, ambient noise, and hardware issues. Any formal questions or concerns about the content, text or information contained within the body of this dictation should be directly addressed to the provider for clarification.
== END 2025-04-19 23:59 | disposition home or self-care (01) ==
LOC: SCTC 14:33
PROVIDERS: PCP Family Medicine; Referring Provider Family Medicine; Visit Provider Internal Medicine Hematology & Oncology
DX: Z15.01 Genetic susceptibility to malignant neoplasm of breast (principal); Z80.3 Family history of malignant neoplasm of breast
CPT/HCPCS: 99212; G0463